=== PATIENT | male | born 1960 ===

== ENCOUNTER 2024-04-25 06:04 | Day surgery (SDC) | payer OTHER ==
[2024-04-23 12:32] VITALS: BP 118/81
[~2024-04-25 06:04] MED LIST: AMLODIPINE BESY10 MG PO; ZESTRIL40 M1 PO
[2024-04-25] MEDS ORDERED: METRONIDAZOLE/SODIUM CHLORIDE 500 MG/100 ML PIGGYBACK IV ONE (10:00)
[2024-04-25] MEDS ORDERED: BUPIVACAINE HCL 30 ML VIAL IJ ONE (10:00)
[2024-04-25] MEDS ORDERED: CEFTRIAXONE SODIUM 2,000 MG VIAL IV ONE (10:00)
[2024-04-25] MEDS ORDERED: ENOXAPARIN SODIUM 40 MG/0.4 ML SYRINGE SUBCUTANEO ONE (10:00)
[2024-04-25] MEDS ORDERED: MORPHINE SULFATE 4 MG/ML VIAL IV ONE ×2 (12:00→12:30)
[2024-04-25] MEDS ORDERED: PERCOCET 5-3251 EACH PO (12:21)
[2024-04-25] MEDS ORDERED: NEURONTIN300 MG PO (12:21)
[2024-04-25] MEDS ORDERED: CELEBREX200MG PO (12:21)
== END 2024-04-25 13:45 | disposition home or self-care (01) ==
LOC: CIR.AMB 06:04
PROVIDERS: ATTEND Surgery
DX: K80.20 Calculus of gallbladder without cholecystitis without obstruction (principal); I10 Essential (primary) hypertension; H52.10 Myopia, unspecified eye; H52.209 Unspecified astigmatism, unspecified eye